=== PATIENT | female | born 1995 | race Caucasian/White ===

== ENCOUNTER 2019-10-25 20:45 | Emergency (ER) | payer BC ==
--- NOTE | 2019-10-25 21:15 | EDM.PDOC ---
ED HPI GENERAL MEDICAL PROBLEM - General Chief Complaint: Chest Pain Stated Complaint: CHEST PAIN Time Seen by Provider: 10/25/19 21:09 Source of Information: Reports: Patient History Limitations: Reports: No Limitations - History of Present Illness INITIAL COMMENTS - FREE TEXT/NARRATIVE: HISTORY AND PHYSICAL: History of present illness: Patient is a 24-year-old female who presents to the emergency room with complaints of chest tightness that has been ongoing for "several years" but worse over the past 1 to 2 weeks. She states that the pain/tightness occurs in the evening and typically will resolve by the afternoon. Patient is approximately 8 weeks , has seen Dr. Briscoe. She did not mention this to Dr. Briscoe although states this is been going on longer than she has been . She denies any LABORER HOISTING concerns or complaints today (no vaginal bleeding, cramping, back pain, etc...) She states nothing makes the discomfort better or worse. Not associated with food. Patient denies any fever, chills, headache, change in vision, syncope or near syncope. Denies any neck pain/ stiffness, back pain, shortness of breath or cough. Denies any abdominal pain, nausea, vomiting, diarrhea, constipation or dysuria. Has not noted any blood in urine or stool. Patient has been eating and drinking appropriately. Review of systems: As per history of present illness and below otherwise all systems reviewed and negative. Past medical history: As per history of present illness and as reviewed below otherwise noncontributory. Surgical history: As per history of present illness and as reviewed below otherwise noncontributory. Social history: See social history for further information Family history: As per history of present illness and as reviewed below otherwise noncontributory. Physical exam: General: Well-developed and well-nourished 24-year-old female. Alert and oriented. Nontoxic-appearing and in no acute distress. HEENT: Atraumatic, normocephalic, pupils equal and reactive bilaterally, negative for conjunctival pallor or scleral icterus, mucous membranes moist, TMs normal bilaterally, throat clear, neck supple, nontender, trachea midline. No drooling or trismus noted. No meningeal signs. No hot potato voice noted. Lungs: Clear to auscultation, breath sounds equal bilaterally, chest nontender. Heart: S1S2, regular rate and rhythm without overt murmur Abdomen: Soft, nondistended, nontender. Negative for masses or hepatosplenomegaly. Negative for costovertebral tenderness. Pelvis: Stable nontender. Skin: Intact, warm, dry. No lesions or rashes noted. Extremities: Atraumatic, moves all extremities per self without difficulty or deficits, negative for cords or calf pain. Neurovascular unremarkable. Neuro: Awake, alert, oriented. Cranial nerves II through XII unremarkable. Cerebellum unremarkable. Motor and sensory unremarkable throughout. Exam nonfocal. Notes: My physical examination is within normal limits. VSS, pulse is 90's. She is at low risk for a PE or DVT. We discussed doing a breathing treatment to see if this helps alleviate her symptoms. She is aware of the limitations of imaging as she is . Patient did find some relief with the breathing treatment. Prescription for pro -air was given and strongly encouraged her to follow-up with Dr. Briscoe. Supportive care measures were reviewed and discussed. Voices understanding and is agreeable to plan of care. Denies any further questions or concerns at this time. Diagnostics: Influenza, UA, EKG Therapeutics: DuoNeb Prescription: Pro-air inhaler Impression: Chest pain, nonspecific Plan: 1. Please start and/or continue to take your vitamin with folic acid once daily. 2. Make sure you are drinking plenty of fluids. You can use the Pro-Air inhaler as needed if you feel this helped your symptoms. 3. Tylenol as needed for pain management. 4. Follow up with her LABORER HOISTING in the next 1-2 days. Return to the ED as needed and as discussed. Definitive disposition and diagnosis as appropriate pending reevaluation and review of above. Duration: Chronic Chest Pain Score (Numeric/FACES): 10 - Related Data Allergies Allergy/AdvReac Type Severity Reaction Status Date / Time hydromorphone HCl Allergy Change Verified 10/25/19 20:53 [From Dilaudid] Mental Status Home Meds: Home Meds Vit37/Iron/Folic Acid [Prenata] 1 each PO DAILY 10/25/19 [History] Past Medical History Other Cardiovascular History: chronic chest pain Respiratory History: Reports: None Gastrointestinal History: Reports: None Genitourinary History: Reports: None LABORER HOISTING History: Reports: Other LABORER HOISTING History: Neurological History: Reports: None Psychiatric History: Reports: None Endocrine/Metabolic History: Reports: None Hematologic History: Reports: None Immunologic History: Reports: None Oncologic (Cancer) History: Reports: None Dermatologic History: Reports: None - Infectious Disease History Infectious Disease History: Reports: Chicken Pox - Past Surgical History Head Surgeries/Procedures: Reports: None HEENT Surgical History: Reports: Adenoidectomy, Tonsillectomy Musculoskeletal Surgical History: Reports: Other (See Below) Other Musculoskeletal Surgeries/Procedures:: R ankle sx Social & Family History - Family History Family Medical History: Noncontributory - Tobacco Use Smoking Status *Q: Current Every Day Smoker Years of Tobacco use: 7 Packs/Tins Daily: 0.2 - Recreational Drug Use Recreational Drug Use: No ED ROS GENERAL - Review of Systems Review Of Systems: Comprehensive ROS is negative, except as noted in HPI. ED EXAM, GENERAL - Physical Exam Exam: See Below (See dictation) Course - Vital Signs Last Recorded V/S: Last Vital Signs Temp 97.7 F 10/25/19 20:51 Pulse 133 H 10/25/19 20:51 Resp 18 10/25/19 20:51 BP 149/85 H 10/25/19 20:51 Pulse Ox 100 10/25/19 20:51 - Orders/Labs/Meds Orders: Active Orders 24 hr Category Date Time Status EKG Documentation Completion [RC] STAT Care 10/25/19 20:47 Active RT Aerosol Therapy [RC] ASDIRECTED Care 10/25/19 21:30 Active Labs: Laboratory Tests 10/25/19 Range/Units 21:07 Urine Color YELLOW Urine Appearance CLEAR Urine pH 6.0 (5.0-8.0) Ur Specific Gardiner 1.010 (1.001-1.035) Urine Protein NEGATIVE (NEGATIVE) mg/dL Urine Glucose (UA) NEGATIVE (NEGATIVE) mg/dL Urine Ketones NEGATIVE (NEGATIVE) mg/dL Urine Occult Blood NEGATIVE (NEGATIVE) Urine Nitrite NEGATIVE (NEGATIVE) Urine Bilirubin NEGATIVE (NEGATIVE) Urine Urobilinogen 0.2 (<2.0) EU/dL Ur Leukocyte Esterase NEGATIVE (NEGATIVE) Meds: Medications Discontinued Medications Generic Name Dose Route Start Last Admin Trade Name Freq PRN Reason Stop Dose Admin Albuterol/Ipratropium 3 ml 10/25/19 21:30 10/25/19 21:50 Duoneb 3.0-0.5 Mg/3 Ml NEB 10/25/19 21:31 3 ml ONETIME ONE Administration Departure - Departure Time of Disposition: 21:58 Disposition: Home, Self-Care 01 Clinical Impression: Nonspecific chest pain Instructions: Nonspecific Chest Pain Referrals: Blanca Philippe, MANAGER LVN [Primary Care Provider] - Forms: ED Department Discharge Additional Instructions: The following information is given to patients seen in the emergency department who are being discharged to home. This information is to outline your options for follow-up care. We provide all patients seen in our emergency department with a follow-up referral. The need for follow-up, as well as the timing and circumstances, are variable depending upon the specifics of your emergency department visit. If you don't have a primary care physician on staff, we will provide you with a referral. We always advise you to contact your personal physician following an emergency department visit to inform them of the circumstance of the visit and for follow-up with them and/or the need for any referrals to a consulting specialist. The emergency department will also refer you to a specialist when appropriate. This referral assures that you have the opportunity for follow-up care with a specialist. All of these measure are taken in an effort to provide you with optimal care, which includes your follow-up. Under all circumstances we always encourage you to contact your private physician who remains a resource for coordinating your care. When calling for follow-up care, please make the office aware that this follow-up is from your recent emergency room visit. If for any reason you are refused follow-up, please contact the [facility] Emergency Department at and asked to speak to the emergency department charge nurse. [facility] [address] [place] [address] [id number] [address] [address] 1. Please start and/or continue to take your vitamin with folic acid once daily. 2. Make sure you are drinking plenty of fluids. You can use the Pro-Air inhaler as needed if you feel this helped your symptoms. 3. Tylenol as needed for pain management. 4. Follow up with her LABORER HOISTING in the next 1-2 days. Return to the ED as needed and as discussed. Sepsis Event Note - Evaluation Sepsis Screening Result: No Definite Risk - Focused Exam Vital Signs: Vital Signs Temp Pulse Resp BP Pulse Ox 10/25/19 20:51 97.7 F 133 H 18 149/85 H 100 Date Exam was Performed: 10/25/19 Time Exam was Performed: 21:53 - My Orders Last 24 Hours: My Active Orders 10/25/19 20:47 EKG Documentation Completion [RC] STAT 10/25/19 21:30 RT Aerosol Therapy [RC] ASDIRECTED - Assessment/Plan Last 24 Hours: My Active Orders 10/25/19 20:47 EKG Documentation Completion [RC] STAT 10/25/19 21:30 RT Aerosol Therapy [RC] ASDIRECTED
[2019-10-25] MEDS ORDERED: Albuterol/Ipratropium 3.0-0.5 MG/3 ML Neb Soln NEB ONE (21:30)
[2019-10-25 22:07] VITALS: BP 117/66; PULSE 102
== END 2019-10-25 22:31 | disposition home or self-care (01) ==
LOC: MW.ED 20:45
DX: O99.89 Other specified diseases and conditions complicating pregnancy, childbirth and the puerperium (principal); R07.89 Other chest pain; O99.331 Smoking (tobacco) complicating pregnancy, first trimester; F17.210 Nicotine dependence, cigarettes, uncomplicated; Z98.890 Other specified postprocedural states; Z88.5 Allergy status to narcotic agent; Z3A.08 8 weeks gestation of pregnancy
CPT/HCPCS: 81003; 87804; 93005; 94640; 99283; 99285-25; J7620-GY

== ENCOUNTER 2020-05-29 16:10 | Inpatient (IN) | payer BC, MEDICAID ==
[2020-05-29] MEDS ORDERED: Sodium Chloride 0.9% 2.5 ML Syringe FLUSH PRN (16:51)
[2020-05-29] MEDS ORDERED: Sodium Chloride 0.9% 10 ML SDV IV PRN (16:51)
[2020-05-29] MEDS ORDERED: Sodium Chloride 0.9% 10 ML Syringe FLUSH PRN (16:51)
[2020-05-29] MEDS ORDERED: Lactated Ringers 1,000 ML IV SCH ×2 (17:00→19:00)
[2020-05-29] MEDS ORDERED: Ampicillin 2 GM in Sodium Chloride 0.9% 100 ML IV STA (17:27)
[2020-05-29] MEDS ORDERED: Ampicillin 2 GM AdvVial IV ONE (17:31)
[2020-05-29] MEDS ORDERED: Morphine PF 10 MG/10 ML SDV ONE (17:49)
[2020-05-29] MEDS ORDERED: fentaNYL 100 MCG/2 ML SDV IVPUSH PRN (17:51)
[2020-05-29] MEDS ORDERED: Nalbuphine 10 MG/1 ML Vial IVPUSH PRN (17:51)
--- NOTE | 2020-05-29 17:51 | PCM.PREANE ---
Preanesthetic Assessment - Anesthesia/Transfusion/Family Hx Anesthesia History: No Prior Anesthesia Family History of Anesthesia Reaction: No - Review of Systems General: No Symptoms Pulmonary: No Symptoms Cardiovascular: No Symptoms Gastrointestinal: No Symptoms Neurological: No Symptoms Other: Reports: None - Physical Assessment NPO Status Date: 05/29/20 NPO Status Time: 14:00 Height: 5 ft 5 in Weight: 90.718 kg ASA Class: 2 Mental Status: Alert & Oriented x3 Airway Class: Mallampati = 2 Dentition: Reports: Normal Dentition ROM/Head Extension: Full Lungs: Clear to Auscultation, Normal Respiratory Effort Cardiovascular: Regular Rate, Regular Rhythm - Lab Values: Laboratory Last Values WBC 13.69 K/uL (4.0-11.0) H 05/29/20 16:47 RBC 3.59 M/uL (4.30-5.90) L 05/29/20 16:47 Hgb 10.8 g/dL (12.0-16.0) L 05/29/20 16:47 Hct 32.3 % (36.0-46.0) L 05/29/20 16:47 MCV 90.0 fL (80.0-98.0) 05/29/20 16:47 MCH 30.1 pg (27.0-32.0) 05/29/20 16:47 MCHC 33.4 g/dL (31.0-37.0) 05/29/20 16:47 RDW Std Deviation 43.3 fl (28.0-62.0) 05/29/20 16:47 RDW Coeff of Marie 13 % (11.0-15.0) 05/29/20 16:47 Plt Count 274 K/uL (150-400) 05/29/20 16:47 MPV 9.90 fL (7.40-12.00) 05/29/20 16:47 Nucleated RBC % 0.0 /100WBC 05/29/20 16:47 Nucleated RBCs # 0 K/uL 05/29/20 16:47 Membrane Rupture POSITIVE 05/29/20 16:20 COVID-19 (MARCELO) NEGATIVE (NEGATIVE) 05/29/20 17:00 - Allergies Allergies/Adverse Reactions: Allergies Allergy/AdvReac Type Severity Reaction Status Date / Time hydromorphone HCl Allergy Change Verified 10/25/19 20:53 [From Dilaudid] Mental Status - Blood Blood Available: Yes - Anesthesia Plan Pre-Op Medication Ordered: Antacids - Acknowledgements Anesthesia Type Planned: Spinal Pt an Appropriate Candidate for the Planned Anesthesia: Yes Alternatives and Risks of Anesthesia Discussed w Pt/Guardian: Yes Pt/Guardian Understands and Agrees with Anesthesia Plan: Yes PreAnesthesia Questionnaire - Past Health History Medical/Surgical History: Denies Medical/Surgical History Other Cardiovascular History: chronic chest pain Respiratory History: Reports: None Gastrointestinal History: Reports: None Genitourinary History: Reports: None REHAB CONSULTANT History: Reports: Other OB/BYN History: Neurological History: Reports: None Psychiatric History: Reports: Anxiety Endocrine/Metabolic History: Reports: None Hematologic History: Reports: None Immunologic History: Reports: None Oncologic (Cancer) History: Reports: None Dermatologic History: Reports: None - Infectious Disease History Infectious Disease History: Reports: None - Past Surgical History Head Surgeries/Procedures: Reports: None HEENT Surgical History: Reports: Adenoidectomy, Tonsillectomy Musculoskeletal Surgical History: Reports: Other (See Below) Other Musculoskeletal Surgeries/Procedures:: R ankle sx - HOME MEDS Home Medications: Home Meds Vit37/Iron/Folic Acid [Prenata] 1 each PO DAILY 10/25/19 [History] - CURRENT (IN HOUSE) MEDS Current Meds: Current Medications Citric Acid/Sodium Citrate (Bicitra Solution) 30 ml PO ONETIME ONE Stop: 05/29/20 18:01 Last Admin: 05/29/20 17:46 Dose: 30 ml Documented by: Lactated Ringer's (Ringers, Lactated) 1,000 mls @ 500 mls/hr IV BOLUS [facility] Last Admin: 05/29/20 17:03 Dose: 999 mls/hr Documented by: Oxytocin/Sodium Chloride (Oxytocin 30 Unit/500 Ml-Ns) 30 unit in 500 mls @ 250 mls/hr IV TITRATE [facility] Cefazolin Sodium/Dextrose 2 gm (/ Premix) 50 mls @ 100 mls/hr IV ONETIME ONE Stop: 05/29/20 18:29 Ampicillin Sodium 2 gm/ Sodium (Chloride) 100 mls @ 200 mls/hr IV ONETIME STA Stop: 05/29/20 17:56 Last Admin: 05/29/20 17:46 Dose: 200 mls/hr Documented by: Sodium Chloride (Saline Flush) 10 ml FLUSH ASDIRECTED PRN PRN Reason: Keep Vein Open Sodium Chloride (Saline Flush) 2.5 ml FLUSH ASDIRECTED PRN PRN Reason: Keep Vein Open Sodium Chloride (Normal Saline) 10 ml IV ASDIRECTED PRN PRN Reason: IV Use Discontinued Medications Ampicillin Sodium (Ampicillin) Confirm Administered Dose 2 [facility] Stop: 05/29/20 17:32
[2020-05-29] MEDS ORDERED: Citric Acid/Sodium Citrate Solution 30 ML Cup PO ONE (18:00)
[2020-05-29] MEDS ORDERED: Oxytocin/0.9 % Sodium Chloride 30 UNIT/500 ML BAG IV SCH (18:00)
[2020-05-29] MEDS ORDERED: ceFAZolin 2 GM in Premix Bag 1 BAG IV ONE (18:00)
[2020-05-29] MEDS ORDERED: Phenylephrine 1% 10 MG/ML SDV ONE (18:05)
[2020-05-29] MEDS ORDERED: Ondansetron 4 MG/2 ML SDV ONE (18:05)
[2020-05-29] MEDS ORDERED: Oxytocin 10 Units/1 ML SDV ONE (18:05)
[2020-05-29] MEDS ORDERED: ceFAZolin 1 GM Vial ONE (18:08)
[2020-05-29] MEDS ORDERED: Sodium Chloride 0.9% 20 ML ONE (18:08)
[2020-05-29] MEDS ORDERED: Octyl 2-Cyanoacrylate 1 Tube ONE (18:37)
[2020-05-29] MEDS ORDERED: Measles, Mumps & Rubella Vaccine 0.5 ML SDV SUBCUT ONE (18:57)
[2020-05-29] MEDS ORDERED: Tranexamic Acid 1,000 MG in Sodium Chloride 0.9% 100 ML IV PRN (18:57)
[2020-05-29] MEDS ORDERED: Misoprostol 200 MCG Tab RECTAL PRN (18:57)
[2020-05-29] MEDS ORDERED: Methylergonovine 0.2 MG/1 ML Amp IM PRN (18:57)
[2020-05-29] MEDS ORDERED: diphenhydrAMINE 50 MG/ML SDV IVPUSH PRN (18:57)
[2020-05-29] MEDS ORDERED: Lanolin 100% Cream 7 GM Tube TOP PRN (18:57)
[2020-05-29] MEDS ORDERED: Oxytocin 10 Units/1 ML SDV IM PRN (18:57)
[2020-05-29] MEDS ORDERED: Acetaminophen/oxyCODONE 325-5 MG Tab PO PRN (18:57)
[2020-05-29] MEDS ORDERED: Bisacodyl 10 MG Supp RECTAL PRN (18:57)
[2020-05-29] MEDS ORDERED: Ondansetron 4 MG/2 ML SDV IVPUSH PRN (18:57)
[2020-05-29] MEDS ORDERED: Oxytocin/Lactated Ringers 30 UNIT/500 ML BAG IV SCH (19:00)
--- NOTE | 2020-05-29 19:02 | PCM.OPNOTE ---
- General Post-Op/Procedure Note Date of Surgery/Procedure: 05/29/20 Operative Procedure(s): primary low transverse Findings: Liveborn female 8/9 weight pending, [place] breech presentation normal appearing uterus tubes and ovaries. Pre Op Diagnosis: 36 weeks PPROM, BREECH Post-Op Diagnosis: Same Anesthesia Technique: Spinal Primary Surgeon: Viridiana Rodriguez (Yuliana Rios MS4) Anesthesia Provider: Ronen House Pathology: none Fluid Replacement, Intraop: 500 Output, Urine Amount: 350 EBL in mLs: 300 Complications: None Known Condition: Good
[2020-05-29] MEDS: Ketorolac 30 MG/ML SDV IVPUSH SCH (19:26)
--- NOTE | 2020-05-29 19:43 | PCM.POSTAN ---
POST ANESTHESIA ASSESSMENT - MENTAL STATUS Mental Status: Alert, Oriented - RESPIRATORY Respiratory Status: Respiratory Rate WNL, Airway Patent, O2 Saturation Stable - CARDIOVASCULAR CV Status: Pulse Rate WNL, Blood Pressure Stable - GASTROINTESTINAL GI Status: No Symptoms - POST OP HYDRATION Hydration Status: Adequate & Stable
--- NOTE | 2020-05-29 20:57 | OR ---
SURGEON: Viridiana Rodriguez M.D. DATE OF PROCEDURE: 05/29/2020 PREOPERATIVE DIAGNOSES: A 36-week intrauterine , premature rupture of membranes, breech presentation. POSTOPERATIVE DIAGNOSES: A 36-week intrauterine , premature rupture of membranes, breech presentation. PROCEDURE: Primary low transverse section. PRIMARY SURGEON: Viridiana Rodriguez MD TELESCOPE OPERATOR: EDNA Hodge. ANESTHESIA: Spinal. ESTIMATED BLOOD LOSS: 300 mL. FLUIDS: 500 mL of crystalloid. URINE OUTPUT: 350 mL. FINDINGS: Liveborn female, nimesh breech presentation with score of 8 and 9, weight is pending at the time of dictation. Normal-appearing uterus, tubes, and ovaries. COMPLICATIONS: None known. DISPOSITION: Stable to Recovery. BRIEF HISTORY: This is a 24-year-old female, G1, P0. She presents at 36 weeks' gestation, spontaneous rupture of membranes, clear fluid. 3 cm, 80%. Category 1 heart tones. Unknown group B strep status. She did receive ampicillin for group B strep prophylaxis. She was counseled regarding recommendation for delivery due to rupture of membranes, breech presentation. Not a good candidate for external version; and therefore, she does agree to proceed with a primary delivery with risks discussed including bleeding; infection; injury to bowel, bladder, blood vessels, ureters, or other organs; risk of thromboembolic event; and risk of anesthesia. Understanding all these risks, she does desire to proceed. DESCRIPTION OF PROCEDURE: With the patient in left tilt position, under adequate spinal analgesia, the abdomen was prepped with chlorhexidine and draped in usual fashion for abdominal surgery. SCDs were in place. Rayo catheter had been placed. Ancef 2 g had been given IV. After documentation of adequate analgesia and after an appropriate time-out, a transverse curvilinear incision was made 2 cm cephalad from the pubic symphysis with a scalpel and carried through the subcutaneous tissue to the fascia, which was scored transversely in the midline. The fascial incision was extended using curved Anderson scissors. The fascia was elevated from the underlying rectus muscle using sharp and blunt dissection. The rectus muscles were bluntly in the midline. The peritoneum was entered bluntly and the incision was extended. The Wellington O retractor was inserted into the abdominal cavity and transverse incision was made over the peritoneal reflection of the lower uterine segment and an adequate bladder flap was developed. A transverse curvilinear incision was made over the lower uterine segment using a scalpel. A finger was used to enter the amniotic cavity and this incision was extended using cephalad-caudad retraction. The breech was delivered anteriorly with fundal pressure. The arms were swept across the chest. The chin was used to flex the head and the was delivered without any difficulty. The infant was a liveborn female, score of 8 and 9. After the cord had ceased to pulsate, it was doubly clamped and cut. The infant was handed to Dr. Ruff who was in attendance at delivery. Cord blood was collected for cord ABGs as well as routine cord blood sampling. Pitocin was initiated after delivery of the . The placenta was delivered by manual extraction. The cervix was inspected with ring forceps and was widely open and the uterus was cleaned with a dry laparotomy tape. The uterine incision was closed with a running lock suture of 0 Polysorb followed by an imbricating layer of 0 Polysorb. Posterior cul-de-sac and pericolic gutters were cleaned with a wet laparotomy tape. The tubes and ovaries were inspected and appeared normal. The uterine incision was inspected and was hemostatic. The Wellington O retractor was removed. Bladder blade was placed and the uterine incision was once again inspected and it was completely hemostatic. Therefore, the bladder blade was removed. The rectus muscle and peritoneum were loosely approximated in the midline using a running mattress suture of 0 Polysorb. The posterior aspect of the fascia was inspected and was hemostatic. The fascial incision was closed with a running suture of 0 Polysorb. Subcutaneous tissue was irrigated copiously and any areas of bleeding that were noted were cauterized. The skin was closed with a running subcuticular suture of 3-0 Monocryl followed by Dermabond. Final sponge, needle, and instrument counts were reported as correct. There were no known complications. The patient and are in Recovery in good condition. ANNE MARIE / JENIFFER /[id number]
--- NOTE | 2020-05-29 21:44 | HP ---
DATE OF : 1995 PRIMARY CARE PHYSICIAN: None PCP CHIEF COMPLAINT: Spontaneous rupture of membranes. HISTORY: This is a 24-year-old female, G1, P0. She presents at 36 weeks' gestation with spontaneous rupture of membranes, clear fluid, unknown group B strep status. She is O positive, rubella nonimmune, RPR negative, hepatitis B negative. She has used tobacco during the . Her has otherwise been uncomplicated except for some very mildly elevated blood pressures mid . She presents with spontaneous rupture of membranes; irregular contractions; breech presentation with cervix exam 3 cm, 80%, minus 3 station. Recommendation was to proceed with a primary due to breech presentation in labor with ruptured membranes with risks discussed including bleeding; infection; injury to bowel, bladder, blood vessels, ureters, or other organs, and she concurs with the plan. She did receive ampicillin 2 g IV due to unknown group B strep status. PAST MEDICAL HISTORY: Significant for being a current smoker. PAST SURGICAL HISTORY: She has had two ankle surgeries and a T and A. ALLERGIES: To Dilaudid which causes blackout and vomiting. SOCIAL HISTORY: She is , sexually active. She denies use of alcohol or street drugs. She does smoke five or less cigarettes per day. FAMILY HISTORY: Significant for paternal grandfather with testicular cancer, paternal grandmother alive and well. Maternal grandfather alive with type 2 diabetes, maternal grandmother with breast cancer. Parents and siblings are alive and well. REVIEW OF SYSTEMS: Negative for headache, visual changes, shortness of breath, chest pain, dyspnea on exertion, palpitations, nausea, vomiting, diarrhea, change in bowel habits, rash, joint or bone pain, or other findings on review of systems. PHYSICAL EXAMINATION: VITAL SIGNS: Temperature is 98.0, pulse is 116, blood pressure 136/77, respiratory rate of 18. heart tones 130s, moderate variability, accelerations present, no decelerations. Contractions are rare. GENERAL: She is alert and oriented. No acute distress. NECK: Supple without lymphadenopathy or thyromegaly. LUNGS: Clear bilaterally. CARDIOVASCULAR: Regular rate without murmur. ABDOMEN: Soft, gravid, nontender. EXTREMITIES: Show trace edema. GENITOURINARY: Vaginal exam 3 cm, 80%, minus 2 station. DIAGNOSTIC STUDIES: Ultrasound confirmation of breech presentation. ASSESSMENT AND PLAN: A 36-week intrauterine , premature rupture of membranes, unknown group B strep status, breech presentation. We will proceed with ampicillin for group B strep prophylaxis with a delivery with risks and benefits discussed. The patient is in agreement with plan. ANNE MARIE SWIFT /[id number]
[2020-05-29] MEDS: Docusate Sodium 100 MG Cap PO SCH (23:25)
[2020-05-30] MEDS: Ketorolac 30 MG/ML SDV IVPUSH SCH ×4 (01:00→19:14)
--- NOTE | 2020-05-30 08:28 | PCM48HPAN ---
Post Anesthesia Note - EVALUATION WITHIN 48HRS OF ANESTHETIC Vital Signs in Normal Range: Yes Patient Participated in Evaluation: Yes Respiratory Function Stable: Yes Airway Patent: Yes Cardiovascular Function Stable: Yes Hydration Status Stable: Yes Pain Control Satisfactory: Yes Nausea and Vomiting Control Satisfactory: Yes Mental Status Recovered: Yes Vital Signs: Last Vital Signs Temp 36.6 C 05/30/20 07:44 Pulse 70 05/30/20 07:44 Resp 16 05/30/20 07:44 BP 97/51 L 05/30/20 07:44 Pulse Ox 96 05/30/20 07:44 - COMMENTS/OBSERVATIONS Free Text/Narrative:: Only complaints of itching around incision and painful IV. Otherwise doing well.
--- NOTE | 2020-05-30 08:43 | PCM.PNPP ---
- General Info Date of Service: 05/30/20 Functional Status: Reports: Pain Controlled, Tolerating Diet, Ambulating, Urinating - Review of Systems General: Reports: Fatigue. Denies: Fever, Weakness Pulmonary: Denies: Shortness of Breath Cardiovascular: Denies: Chest Pain, Palpitations, Lightheadedness Gastrointestinal: Denies: Abdominal Pain, Nausea, Vomiting Genitourinary: Denies: Flank Pain Musculoskeletal: Reports: No Symptoms Skin: Reports: No Symptoms Neurological: Reports: No Symptoms Psychiatric: Reports: No Symptoms - General Info Date of Service: 05/30/20 - Patient Data Vital Signs - Most Recent: Last Vital Signs Temp 36.6 C 05/30/20 07:44 Pulse 70 05/30/20 07:44 Resp 16 05/30/20 07:44 BP 97/51 L 05/30/20 07:44 Pulse Ox 96 05/30/20 07:44 Weight - Most Recent: 90.718 kg I&O - Last 24 Hours: Intake & Output 05/29/20 05/30/20 05/30/20 22:59 06:59 14:59 Intake Total 1500 894 Output Total 550 950 Balance 950 -56 Lab Results - Last 24 Hours: Laboratory Results - last 24 hr 05/29/20 05/29/20 05/29/20 Range/Units 16:20 16:47 16:47 WBC 13.69 H (4.0-11.0) K/uL RBC 3.59 L (4.30-5.90) M/uL Hgb 10.8 L (12.0-16.0) g/dL Hct 32.3 L (36.0-46.0) % MCV 90.0 (80.0-98.0) fL MCH 30.1 (27.0-32.0) pg MCHC 33.4 (31.0-37.0) g/dL RDW Std Deviation 43.3 (28.0-62.0) fl RDW Coeff of Marie 13 (11.0-15.0) % Plt Count 274 (150-400) K/uL MPV 9.90 (7.40-12.00) fL Nucleated RBC % 0.0 /100WBC Nucleated RBCs # 0 K/uL Cord VBG pH (7.25-7.45) Cord VBG Base Excess (-10--2) Membrane Rupture POSITIVE COVID-19 ([facility]) (NEGATIVE) Blood Type O POSITIVE Antibody Screen NEGATIVE 05/29/20 05/29/20 05/30/20 Range/Units 17:00 18:22 05:42 WBC (4.0-11.0) K/uL RBC (4.30-5.90) M/uL Hgb 9.7 L (12.0-16.0) g/dL Hct 29.7 L (36.0-46.0) % MCV (80.0-98.0) fL MCH (27.0-32.0) pg MCHC (31.0-37.0) g/dL RDW Std Deviation (28.0-62.0) fl RDW Coeff of Marie (11.0-15.0) % Plt Count (150-400) K/uL MPV (7.40-12.00) fL Nucleated RBC % /100WBC Nucleated RBCs # K/uL Cord VBG pH 7.428 (7.25-7.45) Cord VBG Base Excess -2 (-10--2) Membrane Rupture COVID-19 ([facility]ARCELO) NEGATIVE (NEGATIVE) Blood Type Antibody Screen Med Orders - Current: Current Medications Bisacodyl (Dulcolax) 10 mg RECTAL ONETIME PRN PRN Reason: Constipation Diphenhydramine HCl (Benadryl) 25 mg IVPUSH Q6H PRN PRN Reason: Itching or Nausea Last Admin: 05/30/20 03:15 Dose: 25 mg Documented by: Docusate Sodium (Colace) 100 mg PO BID [facility] Last Admin: 05/29/20 23:25 Dose: Not Given Documented by: Emollient Ointment (Lansinoh Hpa) 0 gm TOP ASDIRECTED PRN PRN Reason: Sore Nipples Fentanyl (Sublimaze) 50 mcg IVPUSH Q5M PRN PRN Reason: Pain (severe 7-10) Stop: 05/30/20 17:52 Lactated Ringer's (Ringers, Lactated) 1,000 mls @ 125 mls/hr IV ASDIRECTED [facility] Last Admin: 05/29/20 20:05 Dose: 125 mls/hr Documented by: Oxytocin/Lactated Ringer's (Pitocin In Lr 30 Units/500 Ml) 30 unit in 500 mls @ 999 mls/hr IV TITRATE [facility]; Protocol Tranexamic Acid 1,000 mg/ (Sodium Chloride) 110 mls @ 660 mls/hr IV ONETIME PRN PRN Reason: Bleeding Ibuprofen (Motrin) 800 mg PO Q8H PRN PRN Reason: mild pain or fever Ketorolac Tromethamine (Toradol) 30 mg IVPUSH Q6H [facility] Stop: 05/30/20 19:01 Last Admin: 05/30/20 06:40 Dose: 30 mg Documented by: Methylergonovine Maleate (Methergine) 0.2 mg IM ONETIME PRN PRN Reason: Excessive Vaginal Bleeding Misoprostol (Cytotec) 1,000 mcg RECTAL ONETIME PRN PRN Reason: excessive bleeding Nalbuphine HCl (Nubain) 2.5 mg IVPUSH Q3H PRN PRN Reason: Pruritis Stop: 05/30/20 17:52 Last Admin: 05/29/20 21:30 Dose: 2.5 mg Documented by: Ondansetron HCl (Zofran) 4 mg IVPUSH Q4H PRN PRN Reason: Nausea/Vomiting Oxycodone/Acetaminophen (Percocet 325-5 Mg) 1 tab PO Q4H PRN PRN Reason: Pain (moderate 4-6) Oxycodone/Acetaminophen (Percocet 325-5 Mg) 2 tab PO Q4H PRN PRN Reason: Pain (moderate 4-6) Oxytocin (Pitocin) 10 unit IM ASDIRECTED PRN PRN Reason: Excessive Vaginal Bleeding Discontinued Medications Ampicillin Sodium (Ampicillin) Confirm Administered Dose 2 gm IV .STK-MED ONE Stop: 05/29/20 17:32 Cefazolin Sodium (Ancef) Confirm Administered Dose 2 gm .ROUTE .STK-MED ONE Stop: 05/29/20 18:09 Citric Acid/Sodium Citrate (Bicitra Solution) 30 ml PO ONETIME ONE Stop: 05/29/20 18:01 Last Admin: 05/29/20 17:46 Dose: 30 ml Documented by: Lactated Ringer's (Ringers, Lactated) 1,000 mls @ 500 mls/hr IV BOLUS [facility] Last Admin: 05/29/20 17:03 Dose: 999 mls/hr Documented by: Oxytocin/Sodium Chloride (Oxytocin 30 Unit/500 Ml-Ns) 30 unit in 500 mls @ 250 mls/hr IV TITRATE [facility] Cefazolin Sodium/Dextrose 2 gm (/ Premix) 50 mls @ 100 mls/hr IV ONETIME ONE Stop: 05/29/20 18:29 Ampicillin Sodium 2 gm/ Sodium (Chloride) 100 mls @ 200 mls/hr IV ONETIME STA Stop: 05/29/20 17:56 Last Admin: 05/29/20 17:46 Dose: 200 mls/hr Documented by: Sodium Chloride (Normal Saline) Confirm Administered Dose 20 mls @ as directed .ROUTE .STK-MED ONE Stop: 05/29/20 18:09 Measles/Mumps/Rubella Vaccine Live (M-M-R Ii Vaccine) 0.5 ml SUBCUT .ONCE ONE Stop: 05/29/20 18:58 Morphine Sulfate (Duramorph Pf) Confirm Administered Dose 10 mg .ROUTE .STK-MED ONE Stop: 05/29/20 17:50 Octyl Cyanoacrylate (Dermabond Advance) Confirm Administered Dose 1 applic .ROUTE .STK-MED ONE Stop: 05/29/20 18:38 Ondansetron HCl (Zofran) Confirm Administered Dose 4 mg .ROUTE .STK-MED ONE Stop: 05/29/20 18:06 Oxytocin (Pitocin) Confirm Administered Dose 20 unit .ROUTE .STK-MED ONE Stop: 05/29/20 18:06 Phenylephrine HCl (Jani-Synephrine) Confirm Administered Dose 10 mg .ROUTE .STK- MED ONE Stop: 05/29/20 18:06 Sodium Chloride (Saline Flush) 10 ml FLUSH ASDIRECTED PRN PRN Reason: Keep Vein Open Sodium Chloride (Saline Flush) 2.5 ml FLUSH ASDIRECTED PRN PRN Reason: Keep Vein Open Sodium Chloride (Normal Saline) 10 ml IV ASDIRECTED PRN PRN Reason: IV Use Last Admin: 05/29/20 19:26 Dose: 10 ml Documented by: - Interaction Support Person: - Recovery Exam Fundal Tone: Firm Fundal Level: 1 Fingerbreadths Below Umbilicus Fundal Placement: Midline Lochia Amount: Scant Lochia Color: Rubra/Red Perineum Description: Intact, Minimal Bruising/Swelling Episiotomy/Laceration: None Bladder Status: Indwelling Catheter in Place Urinary Elimination: Indwelling Catheter - Exam General: Alert, Oriented Lungs: Normal Respiratory Effort Cardiovascular: Regular Rate, Regular Rhythm GI/Abdominal Exam: Normal Bowel Sounds, Soft Extremities: Pedal Edema (trace). No: Stephany's Sign Skin: Warm, Dry, Intact Wound/Incisions: Dressing Dry and Intact Neurological: No New Focal Deficit Psy/Mental Status: Alert, Normal Affect, Normal Mood - Problem List & Annotations (1) delivery delivered SNOMED Code(s): 940927417 Code(s): O82 - ENCOUNTER FOR DELIVERY WITHOUT INDICATION Status: Acute Current Visit: Yes - Problem List Review Problem List Initiated/Reviewed/Updated: Yes - Assessment Assessment:: POD 1 status post C section for breech presentation - Plan Plan:: Continue postoperative cares, ambulate halls today. VS and labs reassuring.
[2020-05-30] MEDS: Docusate Sodium 100 MG Cap PO SCH ×2 (09:46→21:34)
[2020-05-30] MEDS: Acetaminophen/oxyCODONE 325-5 MG Tab PO PRN (23:55)
[2020-05-31] MEDS ORDERED: Ibuprofen 800 MG Tab PO PRN (01:00)
[2020-05-31] MEDS: Acetaminophen/oxyCODONE 325-5 MG Tab PO PRN ×2 (04:41→13:56)
--- NOTE | 2020-05-31 08:31 | PCM.PNPP ---
- General Info Date of Service: 05/31/20 Functional Status: Reports: Pain Controlled, Tolerating Diet, Ambulating, Urinating - Review of Systems General: Reports: Fatigue. Denies: Fever, Weakness Pulmonary: Denies: Shortness of Breath Cardiovascular: Denies: Chest Pain, Palpitations, Lightheadedness Gastrointestinal: Reports: Abdominal Pain (incisional, very mild and controlled overall with pain meds). Denies: Nausea, Vomiting Genitourinary: Denies: Flank Pain Musculoskeletal: Reports: No Symptoms Skin: Reports: No Symptoms Neurological: Reports: No Symptoms Psychiatric: Reports: No Symptoms - General Info Date of Service: 05/31/20 - Patient Data Vital Signs - Most Recent: Last Vital Signs Temp 36.3 C 05/31/20 04:34 Pulse 79 05/31/20 04:34 Resp 17 05/31/20 04:34 BP 124/70 05/31/20 04:34 Pulse Ox 95 05/31/20 04:34 Weight - Most Recent: 90.718 kg Med Orders - Current: Current Medications Bisacodyl (Dulcolax) 10 mg RECTAL ONETIME PRN PRN Reason: Constipation Diphenhydramine HCl (Benadryl) 25 mg IVPUSH Q6H PRN PRN Reason: Itching or Nausea Last Admin: 05/30/20 03:15 Dose: 25 mg Documented by: Docusate Sodium (Colace) 100 mg PO BID [facility] Last Admin: 05/30/20 21:34 Dose: 100 mg Documented by: Emollient Ointment (Lansinoh Hpa) 0 gm TOP ASDIRECTED PRN PRN Reason: Sore Nipples Lactated Ringer's (Ringers, Lactated) 1,000 mls @ 125 mls/hr IV ASDIRECTED [facility] Last Admin: 05/29/20 20:05 Dose: 125 mls/hr Documented by: Oxytocin/Lactated Ringer's (Pitocin In Lr 30 Units/500 Ml) 30 unit in 500 mls @ 999 mls/hr IV TITRATE [facility]; Protocol Tranexamic Acid 1,000 mg/ (Sodium Chloride) 110 mls @ 660 mls/hr IV ONETIME PRN PRN Reason: Bleeding Ibuprofen (Motrin) 800 mg PO Q8H PRN PRN Reason: mild pain or fever Methylergonovine Maleate (Methergine) 0.2 mg IM ONETIME PRN PRN Reason: Excessive Vaginal Bleeding Misoprostol (Cytotec) 1,000 mcg RECTAL ONETIME PRN PRN Reason: excessive bleeding Ondansetron HCl (Zofran) 4 mg IVPUSH Q4H PRN PRN Reason: Nausea/Vomiting Oxycodone/Acetaminophen (Percocet 325-5 Mg) 1 tab PO Q4H PRN PRN Reason: Pain (moderate 4-6) Oxycodone/Acetaminophen (Percocet 325-5 Mg) 2 tab PO Q4H PRN PRN Reason: Pain (moderate 4-6) Last Admin: 05/31/20 04:41 Dose: 2 tab Documented by: Oxytocin (Pitocin) 10 unit IM ASDIRECTED PRN PRN Reason: Excessive Vaginal Bleeding Discontinued Medications Ampicillin Sodium (Ampicillin) Confirm Administered Dose 2 gm IV .STK-MED ONE Stop: 05/29/20 17:32 Cefazolin Sodium (Ancef) Confirm Administered Dose 2 gm .ROUTE .STK-MED ONE Stop: 05/29/20 18:09 Citric Acid/Sodium Citrate (Bicitra Solution) 30 ml PO ONETIME ONE Stop: 05/29/20 18:01 Last Admin: 05/29/20 17:46 Dose: 30 ml Documented by: Fentanyl (Sublimaze) 50 mcg IVPUSH Q5M PRN PRN Reason: Pain (severe 7-10) Stop: 05/30/20 17:52 Lactated Ringer's (Ringers, Lactated) 1,000 mls @ 500 mls/hr IV [facility]OL[facility] Last Admin: 05/29/20 17:03 Dose: 999 mls/hr Documented by: Oxytocin/Sodium Chloride (Oxytocin 30 Unit/500 Ml-Ns) 30 unit in 500 mls @ 250 mls/hr IV TITRATE [facility] Cefazolin Sodium/Dextrose 2 gm (/ Premix) 50 mls @ 100 mls/hr IV ONETIME ONE Stop: 05/29/20 18:29 Ampicillin Sodium 2 gm/ Sodium (Chloride) 100 mls @ 200 mls/hr IV ONETIME STA Stop: 05/29/20 17:56 Last Admin: 05/29/20 17:46 Dose: 200 mls/hr Documented by: Sodium Chloride (Normal Saline) Confirm Administered Dose 20 mls @ as directed .ROUTE .STK-MED ONE Stop: 05/29/20 18:09 Ketorolac Tromethamine (Toradol) 30 mg IVPUSH Q6H [facility] Stop: 05/30/20 19:01 Last Admin: 05/30/20 19:14 Dose: 30 mg Documented by: Measles/Mumps/Rubella Vaccine Live (M-M-R Ii Vaccine) 0.5 ml SUBCUT .ONCE ONE Stop: 05/29/20 18:58 Morphine Sulfate (Duramorph Pf) Confirm Administered Dose 10 mg .ROUTE .STK-MED ONE Stop: 05/29/20 17:50 Nalbuphine HCl (Nubain) 2.5 mg IVPUSH Q3H PRN PRN Reason: Pruritis Stop: 05/30/20 17:52 Last Admin: 05/29/20 21:30 Dose: 2.5 mg Documented by: Octyl Cyanoacrylate (Dermabond Advance) Confirm Administered Dose 1 applic .ROUTE .STK-MED ONE Stop: 05/29/20 18:38 Ondansetron HCl (Zofran) Confirm Administered Dose 4 mg .ROUTE .STK-MED ONE Stop: 05/29/20 18:06 Oxytocin (Pitocin) Confirm Administered Dose 20 unit .ROUTE .STK-MED ONE Stop: 05/29/20 18:06 Phenylephrine HCl (Jani-Synephrine) Confirm Administered Dose 10 mg .ROUTE .STK- MED ONE Stop: 05/29/20 18:06 Sodium Chloride (Saline Flush) 10 ml FLUSH ASDIRECTED PRN PRN Reason: Keep Vein Open Sodium Chloride (Saline Flush) 2.5 ml FLUSH ASDIRECTED PRN PRN Reason: Keep Vein Open Sodium Chloride (Normal Saline) 10 ml IV ASDIRECTED PRN PRN Reason: IV Use Last Admin: 05/29/20 19:26 Dose: 10 ml Documented by: - Infant Interaction Support Person: - Recovery Exam Fundal Tone: Firm Fundal Level: 2 Fingerbreadths Below Umbilicus Fundal Placement: Midline Lochia Amount: Scant Lochia Color: Rubra/Red Perineum Description: Intact, Minimal Bruising/Swelling Episiotomy/Laceration: None Bladder Status: Indwelling Catheter in Place Urinary Elimination: Voided - Exam General: Alert, Oriented Lungs: Normal Respiratory Effort Cardiovascular: Regular Rate, Regular Rhythm GI/Abdominal Exam: Soft, Non-Tender Extremities: Pedal Edema (trace). No: Stephany's Sign Skin: Warm, Dry, Intact Wound/Incisions: Healing Well, No Drainage. No: Erythema Neurological: No New Focal Deficit Psy/Mental Status: Alert, Normal Affect, Normal Mood - Problem List & Annotations (1) delivery delivered SNOMED Code(s): 281585202 Code(s): O82 - ENCOUNTER FOR DELIVERY WITHOUT INDICATION Status: Acute Current Visit: Yes - Problem List Review Problem List Initiated/Reviewed/Updated: Yes - My Orders Last 24 Hours: My Active Orders 05/31/20 08:28 Ready for Discharge [RC] PER UNIT ROUTINE - Assessment Assessment:: POD 2 status post C section for breech presentation - Plan Plan:: Doing well overall, VS are stable. She would like to go home today. Discharge to home. Discharge instructions reviewed. Follow up at [facility] 2 and 6 weeks. Infection and bleeding warnings reviewed. Rx sent to [facility] for percocet and colace. She will take OTC ibuprofen prn
[2020-05-31 08:49] VITALS: BP 113/61; PULSE 68
[2020-05-31] MEDS: Docusate Sodium 100 MG Cap PO SCH (10:16)
[2020-05-31] MEDS ORDERED: Measles, Mumps & Rubella Vaccine 0.5 ML SDV SUBCUT ONE (11:11)
== END 2020-05-31 14:25 | disposition home or self-care (01) | DRG 786 ==
LOC: MW.OB 16:10 → MW.OBCHECK 16:10 → MW.OB 16:51
PROVIDERS: ADMIT Obstetrics & Gynecology; ATTEND Obstetrics & Gynecology
PROC: 10D00Z1 Extraction of Products of Conception, Low, Open Approach (ICD-10-PCS; principal; 2020-05-29)
DX: O32.1XX0 Maternal care for breech presentation, not applicable or unspecified (principal); O60.14X0 Preterm labor third trimester with preterm delivery third trimester, not applicable or unspecified; Z3A.36 36 weeks gestation of pregnancy; Z37.0 Single live birth; Z20.828 Contact with and (suspected) exposure to other viral communicable diseases
CPT/HCPCS: 36415; 51702; 59025; 82803; 84112; 85014; 85018; 85027; 86592; 86850; 86900; 86901; A9270-GY; J0290; J0690; J1200; J1885; J2270; J2300; J2370; J2405; J2590; J7050; J7120; U0002

== ENCOUNTER 2022-09-26 21:43 | Emergency (ER) | payer BC, MEDICAID ==
[2022-09-26] MEDS ORDERED: Ketorolac 30 MG/ML SDV IVPUSH ONE (22:00)
[2022-09-26] MEDS ORDERED: Sodium Chloride 0.9% 1,000 ML IV ONE (22:00)
[2022-09-26 23:03] LABS: BLOOD UREA NITROGEN,BUN 10 mg/dL (7.0-18.0); CARBON DIOXIDE,CO2 25.7 mmol/L (21.0-32.0); CHLORIDE,CL 105 mmol/L (98-107); GLUCOSE RANDOM 94 mg/dL (74-106); POTASSIUM,K 3.4 mmol/L (3.5-5.1); SODIUM,NA 139 mmol/L (136-145)
[2022-09-26 23:04] LABS: ESTIMATED GFR 103 mL/min (>60)
[2022-09-26 23:48] LABS: CORONAVIRUS COVID-19 NAA NEGATIVE (NEGATIVE); INFLUENZA A NAA NEGATIVE (NEGATIVE); INFLUENZA B NAA NEGATIVE (NEGATIVE)
[2022-09-27 00:11] VITALS: BP 110/62; PULSE 96
== END 2022-09-27 00:09 | disposition home or self-care (01) ==
LOC: MW.ED 21:43
DX: R07.89 Other chest pain (principal); R07.81 Pleurodynia; R00.0 Tachycardia, unspecified; Z88.5 Allergy status to narcotic agent; Z20.822 Contact with and (suspected) exposure to COVID-19
CPT/HCPCS: 0240U; 36415; 71045; 80053; 83735; 84443; 84484; 84703; 85025; 85379; 93005; 96361; 96374; 96375; 99285; J1885; J3360; J7030